=== PATIENT | female | born 1970 | race Caucasian/White ===

== ENCOUNTER 2019-08-13 11:45 | Outpatient (CLI) | payer MEDICAID ==
[2019-08-13 12:26] LABS: BASOPHILS % (AUTO) 0.3 %; EOSINOPHILS # (AUTO) 0.1 10^3/uL (0.0-0.7); EOSINOPHILS % (AUTO) 1.7 %; HGB - HEMOGLOBIN 14.7 g/dL (12.0-16.0); LYMPHOCYTES # (AUTO) 2.8 10^3/uL (1.5-3.5); LYMPHOCYTES % (AUTO) 37.5 %; MEAN CORPUSCULAR HEMOGLOBIN 26.9 pg (27.0-31.0); MEAN CORPUSCULAR VOLUME 81.5 fL (81.0-99.0); MEAN PLATELET VOLUME 9.3 fL (7.9-10.8); MONOCYTES # (AUTO) 0.6 10^3/uL (0.0-1.0); MONOCYTES % (AUTO) 7.9 %; NEUTROPHILS # (AUTO) 3.9 10^3/uL (1.5-6.6); NEUTROPHILS % (AUTO) 52.1 %; PLT - PLATELET COUNT 399 10^3/uL (130-450); RED BLOOD COUNT 5.47 10^6/uL (4.20-5.40); RED CELL DISTRIBUTION WIDTH 12.5 % (12.0-15.0); WHITE BLOOD COUNT 7.6 x10^3/uL (4.8-10.8)
[2019-08-13 12:37] LABS: MICROALBUM/CREATININE RATIO,UR 16.7 ug/mg (<30.0); MICROALBUMIN,URINE 5.6 mg/dL (0-300.0)
[2019-08-13 12:43] LABS: HB2 TOTAL 16.3 g/dL; HEMOGLOBIN A1C 0.76 g/dL; HEMOGLOBIN A1C % 6.4 % (4.6-6.2)
[2019-08-13 12:44] LABS: ALBUMIN 4.5 g/dL (3.2-5.5); ALBUMIN/GLOBULIN RATIO 1.5 (1.0-2.2); ALKALINE PHOSPHATASE 91 IU/L (42-121); ALT ALANINE AMINOTRANSFERASE 91 IU/L (10-60); AST ASPARTATE AMINOTRANSFERASE 39 IU/L (10-42); BILIRUBIN,TOTAL 0.9 mg/dL (0.2-1.0); BUN - BLOOD UREA NITROGEN 15 mg/dL (6-20); CALCIUM 9.4 mg/dL (8.5-10.3); CARBON DIOXIDE - CO2 25 mmol/L (21-32); CHLORIDE 102 mmol/L (101-111); CHOLESTEROL 223 mg/dL; CREATININE 1.1 mg/dL (0.4-1.0); GFR - MDRD 52 (>89); GLUCOSE 123 mg/dL (70-100); HDL CHOLESTEROL 45 mg/dL; LDL CHOLESTEROL,CALCULATED 126 mg/dL; LDL/HDL RATIO 2.8 (<4.4); SODIUM 138 mmol/L (135-145); TOTAL PROTEIN 7.6 g/dL (6.7-8.2); VLDL CHOLESTEROL 52 mg/dL
== END 2019-08-13 11:46 | disposition home or self-care (01) ==
LOC: LAB 11:45
DX: R79.89 Other specified abnormal findings of blood chemistry (principal); E11.9 Type 2 diabetes mellitus without complications; R74.8 Abnormal levels of other serum enzymes; E78.5 Hyperlipidemia, unspecified; E53.9 Vitamin B deficiency, unspecified; Z79.899 Other long term (current) drug therapy; E03.9 Hypothyroidism, unspecified
CPT/HCPCS: 36415; 80053; 80061; 82043; 82570; 82607; 83036; 83721; 85025

== ENCOUNTER 2020-02-12 09:57 | Emergency (ER) | payer MEDICAID ==
--- NOTE | 2020-02-12 10:23 | ED Physician Documentation ---
PD HPI Fall - Stated complaint Stated Complaint: R SIDED PX - Chief complaint Chief Complaint: Resp - History obtained from History obtained from: Patient - History of Present Illness Mechanism of injury: Slipped (She was stepping down onto a upright small log coming out of a chicken coop and the log tipped and she fell sideways against the edge of the wooden opening. She struck the right posterior lateral ribs and chest and has pain localized area with breathing and movement. She denies hitting her head. She denies any abdominal pain. She does not have any lower extremity weakness or numbness.) Fall distance: Standing position Where injury occurred: Home Timing - onset: How many hours ago (2), Today Injury(ies) location: Chest. No: Head, Neck, Abdomen Associated symptoms: Dyspnea. No: LOC, AMS, Weakness, Paresthesias, Nausea / vomiting Worsens with: Movement, Palpation, Other (breathing deeply) Contributing factors: No: Anticoagulated Similar symptoms before: Has not had sx before Review of Systems Constitutional: denies: Fever Nose: denies: Rhinorrhea / runny nose, Congestion Throat: denies: Sore throat Cardiac: reports: Chest pain / pressure (just since the fall). denies: Palpitations, Pedal edema, Calf pain Respiratory: denies: Cough GI: denies: Abdominal Pain, Nausea, Vomiting Musculoskeletal: denies: Extremity pain Neurologic: denies: Focal weakness, Numbness, Altered mental status, Headache, Head injury PD PAST MEDICAL HISTORY - Past Medical History Past Medical History: Yes Cardiovascular: Hypertension, High cholesterol Respiratory: COPD (mild - inhalers just PRN) Endocrine/Autoimmune: Type 2 diabetes, HyPOthyroidism Other Past Medical History: Hx. Breast ca. - Past Surgical History Past Surgical History: Yes /[employer]: Oophrectomy, Mastectomy - Present Medications Home Medications: Ambulatory Orders Medication Instructions Recorded Confirmed Atorvastatin [Lipitor] 10 mg ORAL DAILY 02/12/20 02/12/20 Citalopram [CeleXA] mg PO ONCE 02/12/20 Fexofenadine/Pseudoephedrine 1 each PO 02/12/20 02/12/20 [Krista-D 12 Hour Tablet] Levothyroxine [Synthroid] 125 mcg PO QDAC 02/12/20 02/12/20 Lisinopril [Zestril] 20 mg PO 02/12/20 Naproxen 500 mg PO BID #20 tablet 02/12/20 Tizanidine HCl 4 mg PO TID PRN #25 capsule 02/12/20 buPROPion [Wellbutrin Sr] mg PO BID 02/12/20 metFORMIN [Glucophage] 1,000 mg PO BIDWM 02/12/20 02/12/20 - Allergies Allergies/Adverse Reactions: Allergies Allergy/AdvReac Type Severity Reaction Status Date / Time No Known Drug Allergies Allergy Verified 02/12/20 10:09 - Social History Does the pt smoke?: Yes Smoking Status: Current every day smoker Does the pt drink ETOH?: No - Immunizations Immunizations are current?: No PD ED PE NORMAL - Vitals Vital signs reviewed: Yes - General General: Alert and oriented X 3, Well developed/nourished - HEENT HEENT: Atraumatic, Pharynx benign - Neck Neck: Supple, no meningeal sign, No bony TTP, No adenopathy - Cardiac Cardiac: RRR, No murmur - Respiratory Respiratory: Clear bilaterally, Other (Tenderness in the right posterior lateral and mid scapular line around ribs 9 or 10. There is no abdominal tenderness. There is no spinal tenderness per se in the thoracic nor lumbar area. No crepitance is felt. Lung sounds are symmetric.) - Abdomen Abdomen: Soft, Non tender, Non distended - Back Back: No spinal TTP (but is tender right midscapular to posterior axillary area lower ribs 9-10 area) - Derm Derm: Normal color, Warm and dry - Extremities Extremities: No tenderness to palpate, Normal ROM s pain - Neuro Neuro: Alert and oriented X 3, No motor deficit, No sensory deficit, Normal speech Results - Vitals Vitals: Vital Signs - 24 hr 02/12/20 02/12/20 02/12/20 10:05 12:05 13:01 Temperature 36.3 C L Heart Rate 84 80 59 L Respiratory 18 16 16 Rate Blood Pressure 146/96 H 150/78 H 149/68 H O2 Saturation 99 99 96 Oxygen O2 Source Room air - Rads (name of study) chest CT Radiology: Prelim report reviewed (no fractures nor acute findings), See rad report PD MEDICAL DECISION MAKING - ED course Complexity details: reviewed results, considered differential, d/w patient Departure - Departure Disposition: 01 Home, Self Care Clinical Impression: Accidental fall Qualifiers: Encounter type: initial encounter Qualified Code(s): W19.XXXA - Unspecified fall, initial encounter Chest wall contusion Qualifiers: Encounter type: initial encounter Laterality: right Qualified Code(s): S20.211A - Contusion of right front wall of thorax, initial encounter Condition: Stable Record reviewed to determine appropriate education?: Yes Instructions: ED Contusion Chest Wall Follow-Up: Marian William MD [Primary Care Provider] - Prescriptions: Naproxen 500 mg PO BID #20 tablet Tizanidine HCl 4 mg PO TID PRN #25 capsule PRN Reason: Spasms Comments: Heat and gentle stretching for her spasms. Use anti-inflammatory of naproxen twice daily for the next 7 to 10 days. To that add Tylenol 650 mg every 4-6 hours for pain as well. For the muscle spasms, he can also use tizanidine muscle relaxant 3-4 times a day. No fractures or lung injury or organ injury are seen on your CT scan. I presume the bruising of the chest wall and muscles will decrease over several days and resolved within a week. Recheck if not improving in that timeframe. Discharge Date/Time: 02/12/20 13:04
[2020-02-12] MEDS ORDERED: KETOROLAC 60 MG/2 ML VIAL IM STA (10:39)
--- NOTE | 2020-02-12 12:39 | CT Report ---
Reason: fell against object; pain rt low posterolat ribs Procedure Date: 02/12/2020 Accession Number: [id number] / [id number] Procedure: CT - CHEST WO CPT Code: Final Report FULL RESULT: EXAM: CT CHEST EXAM DATE: 02/12/2020 11:56 AM. CLINICAL HISTORY: Fell against object; pain right low posterolateral ribs. COMPARISONS: THORAX 1 CHEST ROUTINE 05/18/2010 7:54 AM. TECHNIQUE: Routine helical CT imaging was performed through the chest. IV contrast: None. Reconstructions: Coronal and sagittal. In accordance with CT protocol optimization, one or more of the following dose reduction techniques were utilized for this exam: automated exposure control, adjustment of mA and/or KV based on patient size, or use of iterative reconstructive technique. FINDINGS: Lungs/Pleura: No nodules, bronchial thickening, consolidation, or edema. Pulmonary vasculature is normal. No pericardial or pleural effusion. No pneumothorax. Mediastinum: Normal. No adenopathy or masses. The heart and great vessels are normal. Bones: Unremarkable. Visualized Abdomen: Cholelithiasis. Liver, kidneys, pancreas and spleen appear unremarkable. Other: No visible fracture. IMPRESSION: No acute pathology. RADIA
[2020-02-12 13:04] VITALS: BP 149/68
== END 2020-02-12 13:04 | disposition home or self-care (01) ==
LOC: ED 09:57
DX: S20.211A Contusion of right front wall of thorax, initial encounter (principal); W17.89XA Other fall from one level to another, initial encounter; Y93.K9 Activity, other involving animal care; Y92.008 Other place in unspecified non-institutional (private) residence as the place of occurrence of the external cause; I10 Essential (primary) hypertension; F17.200 Nicotine dependence, unspecified, uncomplicated; E11.9 Type 2 diabetes mellitus without complications; Z79.84 Long term (current) use of oral hypoglycemic drugs
CPT/HCPCS: 71250; 96372; 99284

== ENCOUNTER 2020-05-10 14:01 | Outpatient (CLI) | payer MEDICAID ==
--- NOTE | 2020-05-15 13:25 | Mammography Report ---
UNILATERAL RIGHT DIGITAL SCREENING MAMMOGRAM 3D/2D: 05/10/2020 CLINICAL: Routine screening. Personal history of left breast cancer. Comparison is made to exams dated: 01/19/2019 mammogram - [facility], 01/03/2016 mammogram, 11/18/2012 mammogram, and 09/09/2011 mammogram - [facility]. There are scattered fibrogland ular elements in right breast. No significant masses, calcifications, or other findings are seen in the breast. There has been no significant interval change. IMPRESSION: NEGATIVE There is no mammographic evidence of malignancy. A 1 year screening mammogram is recommended. This exam was interpreted at Station ID: [id number]. NOTE: For mammograms, a report in lay terms will be sent to the patient. Approximately 15% of breast malignancies will not be visualized mammographically. In the management of a palpable breast mass, a negative mammogram must not discourage biopsy of a clinically suspicious lesion. Electronically Signed By: Elie Tom M.D. [facility] [place]:05/12/2020 16:41:54 ACR BI-RADS Category 1: Negative 3341F PARENCHYMAL PATTERN: (A) - The breast(s) demonstrate(s) scattered fibroglandular densities. BI-RADS CATEGORY: (1) - 1 RECOMMENDATION: (ANNUAL) - Recommend routine annual screening mammography. [id number] 1 year screening LATERALITY: (B)
== END 2020-05-10 14:02 | disposition home or self-care (01) ==
LOC: DI 14:01
DX: Z12.31 Encounter for screening mammogram for malignant neoplasm of breast (principal); Z08 Encounter for follow-up examination after completed treatment for malignant neoplasm; Z85.3 Personal history of malignant neoplasm of breast

== ENCOUNTER 2020-09-22 16:38 | Outpatient (CLI) | payer MEDICAID | END 2020-09-22 16:39 | disposition home or self-care (01) | LOC: COV 16:38 | PROVIDERS: ATTEND Family Medicine | DX: R05 Cough (principal); R06.02 Shortness of breath; Z20.828 Contact with and (suspected) exposure to other viral communicable diseases ==

== ENCOUNTER 2021-03-21 09:28 | Outpatient (CLI) | payer MEDICAID ==
[2021-03-21 09:46] LABS: BASOPHILS # (AUTO) 0.1 10^3/uL (0.0-0.1); BASOPHILS % (AUTO) 0.6 %; EOSINOPHILS # (AUTO) 0.2 10^3/uL (0.0-0.7); EOSINOPHILS % (AUTO) 2.6 %; HCT - HEMATOCRIT 43.6 % (37.0-47.0); HGB - HEMOGLOBIN 14.6 g/dL (12.0-16.0); LYMPHOCYTES # (AUTO) 2.9 10^3/uL (1.5-3.5); LYMPHOCYTES % (AUTO) 36.1 %; MEAN CORPUSCULAR HEMOGLOBIN 27.7 pg (27.0-31.0); MEAN CORPUSCULAR HGB CONC 33.5 g/dL (32.0-36.0); MEAN CORPUSCULAR VOLUME 82.6 fL (81.0-99.0); MEAN PLATELET VOLUME 8.8 fL (7.9-10.8); MONOCYTES # (AUTO) 0.7 10^3/uL (0.0-1.0); MONOCYTES % (AUTO) 8.4 %; NEUTROPHILS # (AUTO) 4.2 10^3/uL (1.5-6.6); NEUTROPHILS % (AUTO) 51.8 %; PLT - PLATELET COUNT 412 10^3/uL (130-450); RED BLOOD COUNT 5.28 10^6/uL (4.20-5.40); RED CELL DISTRIBUTION WIDTH 12.9 % (12.0-15.0); WHITE BLOOD COUNT 8.1 x10^3/uL (4.8-10.8)
[2021-03-21 10:07] LABS: ALBUMIN 4.2 g/dL (3.2-5.5); ALBUMIN/GLOBULIN RATIO 1.4 (1.0-2.2); ALKALINE PHOSPHATASE 82 IU/L (42-121); ALT ALANINE AMINOTRANSFERASE 42 IU/L (10-60); AST ASPARTATE AMINOTRANSFERASE 27 IU/L (10-42); BILIRUBIN,TOTAL 0.5 mg/dL (0.2-1.0); BUN - BLOOD UREA NITROGEN 16 mg/dL (6-20); CALCIUM 9.1 mg/dL (8.5-10.3); CARBON DIOXIDE - CO2 25 mmol/L (21-32); CHLORIDE 102 mmol/L (101-111); CHOL/HDL RATIO 4.7 (<4.4); CHOLESTEROL 197 mg/dL; GFR - MDRD 58 (>89); GLUCOSE 155 mg/dL (70-100); HDL CHOLESTEROL 42 mg/dL; LDL CHOLESTEROL,CALCULATED 109 mg/dL; LDL/HDL RATIO 2.6 (<4.4); POTASSIUM 4.3 mmol/L (3.5-5.0); SODIUM 137 mmol/L (135-145); TOTAL PROTEIN 7.2 g/dL (6.7-8.2); TRIGLYCERIDES 231 mg/dL; VLDL CHOLESTEROL 46 mg/dL
[2021-03-21 10:19] LABS: THYROID STIMULATING HORMONE 2.39 uIU/mL (0.34-5.60)
[2021-03-21 10:20] LABS: CREATININE,URINE 234.7 mg/dL; MICROALBUM/CREATININE RATIO,UR 10.7 ug/mg (<30.0); MICROALBUMIN,URINE 2.5 mg/dL (0-300.0)
[2021-03-21 12:48] LABS: ESTIMATED AVERAGE GLUCOSE 146 mg/dL (70-100); HEMOGLOBIN A1c% 6.7 % (4.27-6.07)
== END 2021-03-21 09:29 | disposition home or self-care (01) ==
LOC: LAB 09:28
DX: Z00.00 Encounter for general adult medical examination without abnormal findings (principal); E11.9 Type 2 diabetes mellitus without complications; R74.8 Abnormal levels of other serum enzymes; E78.5 Hyperlipidemia, unspecified; E03.9 Hypothyroidism, unspecified; E53.9 Vitamin B deficiency, unspecified; K21.9 Gastro-esophageal reflux disease without esophagitis
CPT/HCPCS: 36415; 80050; 80061; 82043; 82570; 83036; 83721

== ENCOUNTER 2021-11-12 09:29 | Outpatient (CLI) | payer MEDICAID ==
[2021-11-12 10:01] LABS: BASOPHILS # (AUTO) 0.1 10^3/uL (0.0-0.1); BASOPHILS % (AUTO) 0.7 %; EOSINOPHILS # (AUTO) 0.2 10^3/uL (0.0-0.7); EOSINOPHILS % (AUTO) 2.7 %; HCT - HEMATOCRIT 45.6 % (37.0-47.0); HGB - HEMOGLOBIN 15.2 g/dL (12.0-16.0); LYMPHOCYTES # (AUTO) 2.9 10^3/uL (1.5-3.5); LYMPHOCYTES % (AUTO) 41.8 %; MEAN CORPUSCULAR HEMOGLOBIN 27.2 pg (27.0-31.0); MEAN CORPUSCULAR HGB CONC 33.3 g/dL (32.0-36.0); MEAN CORPUSCULAR VOLUME 81.6 fL (81.0-99.0); MONOCYTES # (AUTO) 0.5 10^3/uL (0.0-1.0); MONOCYTES % (AUTO) 6.9 %; NEUTROPHILS # (AUTO) 3.3 10^3/uL (1.5-6.6); NEUTROPHILS % (AUTO) 47.6 %; PLT - PLATELET COUNT 381 10^3/uL (130-450); RED BLOOD COUNT 5.59 10^6/uL (4.20-5.40); RED CELL DISTRIBUTION WIDTH 12.8 % (12.0-15.0); WHITE BLOOD COUNT 6.9 x10^3/uL (4.8-10.8)
[2021-11-12 10:20] LABS: ALBUMIN 4.4 g/dL (3.2-5.5); ALBUMIN/GLOBULIN RATIO 1.6 (1.0-2.2); ALKALINE PHOSPHATASE 78 IU/L (42-121); ALT ALANINE AMINOTRANSFERASE 44 IU/L (10-60); AST ASPARTATE AMINOTRANSFERASE 26 IU/L (10-42); BILIRUBIN,TOTAL 0.9 mg/dL (0.2-1.0); BUN - BLOOD UREA NITROGEN 12 mg/dL (6-20); CALCIUM 9.4 mg/dL (8.5-10.3); CARBON DIOXIDE - CO2 26 mmol/L (21-32); CHLORIDE 102 mmol/L (101-111); CHOL/HDL RATIO 4.9 (<4.4); CHOLESTEROL 209 mg/dL; GFR - MDRD 58 (>89); GLUCOSE 151 mg/dL (70-100); HDL CHOLESTEROL 43 mg/dL; LDL CHOLESTEROL,CALCULATED 121 mg/dL; LDL/HDL RATIO 2.8 (<4.4); POTASSIUM 4.4 mmol/L (3.5-5.0); SODIUM 139 mmol/L (135-145); TOTAL PROTEIN 7.1 g/dL (6.7-8.2); TRIGLYCERIDES 226 mg/dL; VLDL CHOLESTEROL 45 mg/dL
[2021-11-12 10:33] LABS: THYROID STIMULATING HORMONE 2.86 uIU/mL (0.34-5.60)
[2021-11-12 20:59] LABS: ESTIMATED AVERAGE GLUCOSE 160 mg/dL (70-100); HEMOGLOBIN A1c% 7.2 % (4.27-6.07)
== END 2021-11-12 09:30 | disposition home or self-care (01) ==
LOC: LAB 09:29
DX: Z00.00 Encounter for general adult medical examination without abnormal findings (principal); D75.1 Secondary polycythemia; E11.9 Type 2 diabetes mellitus without complications; R74.8 Abnormal levels of other serum enzymes; E78.5 Hyperlipidemia, unspecified; E03.9 Hypothyroidism, unspecified; K21.9 Gastro-esophageal reflux disease without esophagitis; Z79.899 Other long term (current) drug therapy; E55.9 Vitamin D deficiency, unspecified; L65.9 Nonscarring hair loss, unspecified
CPT/HCPCS: 36415; 80050; 80061; 82043; 82306; 82607; 83036; 83721

== ENCOUNTER 2022-03-21 09:34 | Outpatient (CLI) | payer MEDICAID ==
[2022-03-21 10:07] LABS: ALBUMIN 4.3 g/dL (3.2-5.5); ALBUMIN/GLOBULIN RATIO 1.3 (1.0-2.2); ALKALINE PHOSPHATASE 84 IU/L (42-121); ALT ALANINE AMINOTRANSFERASE 39 IU/L (10-60); AST ASPARTATE AMINOTRANSFERASE 23 IU/L (10-42); BILIRUBIN,TOTAL 0.8 mg/dL (0.2-1.0); BUN - BLOOD UREA NITROGEN 16 mg/dL (6-20); CALCIUM 9.1 mg/dL (8.5-10.3); CARBON DIOXIDE - CO2 25 mmol/L (21-32); CHLORIDE 98 mmol/L (101-111); CHOL/HDL RATIO 4.9 (<4.4); CHOLESTEROL 191 mg/dL; GFR - MDRD 58 (>89); GLUCOSE 148 mg/dL (70-100); HDL CHOLESTEROL 39 mg/dL; LDL CHOLESTEROL,CALCULATED 112 mg/dL; LDL/HDL RATIO 2.9 (<4.4); POTASSIUM 4.2 mmol/L (3.5-5.0); SODIUM 133 mmol/L (135-145); TOTAL PROTEIN 7.6 g/dL (6.7-8.2); TRIGLYCERIDES 200 mg/dL; VLDL CHOLESTEROL 40 mg/dL
[2022-03-21 13:34] LABS: ESTIMATED AVERAGE GLUCOSE 157 mg/dL (70-100); HEMOGLOBIN A1c% 7.1 % (4.27-6.07)
== END 2022-03-21 09:35 | disposition home or self-care (01) ==
LOC: LAB 09:34
DX: E11.9 Type 2 diabetes mellitus without complications (principal)
CPT/HCPCS: 36415; 80053; 80061; 83036; 83721

== ENCOUNTER 2022-06-10 11:43 | Outpatient (CLI) | payer MEDICAID ==
--- NOTE | 2022-06-10 16:02 | CT Report ---
PROCEDURE: Low Dose Lung Cancer Screen INDICATIONS: CURRENT SMOKER TECHNIQUE: Noncontrast low-dose axial images were acquired from the pulmonary apices to the posterior costophren ic angles. Multiplanar MIP reformats were then reconstructed. For radiation dose reduction, the follo wing was used: automated exposure control, adjustment of mA and/or kV according to patient size. COMPARISON: Chest CT without contrast dated 02/12/2020 FINDINGS: Image quality: Excellent. Lungs and pleura: No pulmonary nodules. No acute airspace opacities. No pleural effusion or pneumoth orax. Mediastinum: Heart size is normal. No pericardial effusion. No mediastinal adenopathy by size crit eria. Thoracic aorta and central pulmonary arteries are normal in size. Esophagus is normal in robbie afua. No hiatal hernia. Bones and chest wall: No suspicious bony lesions. No vertebral body compression fractures. No axil nany or supraclavicular adenopathy by size criteria. The thyroid is normal in size and there are no incidental findings. Abdomen: Visualized upper abdomen solid organs and bowel loops appear normal in the absence of contr ast. IMPRESSION: No suspicious pulmonary nodules or pulmonary mass lesions. Negative CT of the chest. Lung RADS 1. Annual CT follow-up recommended. CLINICAL RECOMMENDATION STATEMENTS: In patients <35 years with an ITN detected on CT, MRI, or extrathyroidal ultrasound, the Committee re commends further evaluation with dedicated thyroid ultrasound if the nodule is "e1 cm and has no susp icious imaging features, and if the patient has normal life expectancy. In patients "e35 years with an ITN detected on CT, MRI, or extrathyroidal ultrasound, the Committee r ecommends further evaluation with dedicated thyroid ultrasound if the nodule is "e1.5 cm and has no s uspicious imaging features, and if the patient has normal life expectancy. (ACR, 2014) Reviewed by: Holley Feliz MD on 06/10/2022 4:01 PM PDT Approved by: Holley Feliz MD on 06/10/2022 4:01 PM PDT Station ID: [id number]
== END 2022-06-10 11:44 | disposition home or self-care (01) ==
LOC: DI 11:43
PROVIDERS: ATTEND Family Medicine
DX: Z12.2 Encounter for screening for malignant neoplasm of respiratory organs (principal); F17.210 Nicotine dependence, cigarettes, uncomplicated

== ENCOUNTER 2022-11-14 11:23 | Outpatient (CLI) | payer MEDICAID, BC ==
[2022-11-14 11:40] LABS: BASOPHILS # (AUTO) 0.1 10^3/uL (0.0-0.1); BASOPHILS % (AUTO) 0.5 %; EOSINOPHILS # (AUTO) 0.3 10^3/uL (0.0-0.7); EOSINOPHILS % (AUTO) 2.9 %; HCT - HEMATOCRIT 44.9 % (37.0-47.0); HGB - HEMOGLOBIN 14.6 g/dL (12.0-16.0); LYMPHOCYTES # (AUTO) 4.2 10^3/uL (1.5-3.5); LYMPHOCYTES % (AUTO) 44.4 %; MEAN CORPUSCULAR HEMOGLOBIN 26.9 pg (27.0-31.0); MEAN CORPUSCULAR HGB CONC 32.5 g/dL (32.0-36.0); MEAN CORPUSCULAR VOLUME 82.8 fL (81.0-99.0); MEAN PLATELET VOLUME 8.9 fL (7.9-10.8); MONOCYTES # (AUTO) 0.6 10^3/uL (0.0-1.0); MONOCYTES % (AUTO) 6.8 %; NEUTROPHILS # (AUTO) 4.2 10^3/uL (1.5-6.6); NEUTROPHILS % (AUTO) 44.9 %; PLT - PLATELET COUNT 462 10^3/uL (130-450); RED BLOOD COUNT 5.42 10^6/uL (4.20-5.40); RED CELL DISTRIBUTION WIDTH 12.9 % (12.0-15.0); WHITE BLOOD COUNT 9.4 x10^3/uL (4.8-10.8)
[2022-11-14 12:00] LABS: ALBUMIN 4.3 g/dL (3.2-5.5); ALBUMIN/GLOBULIN RATIO 1.4 (1.0-2.2); ALKALINE PHOSPHATASE 79 IU/L (42-121); ALT ALANINE AMINOTRANSFERASE 59 IU/L (10-60); AST ASPARTATE AMINOTRANSFERASE 37 IU/L (10-42); BILIRUBIN,TOTAL 0.7 mg/dL (0.2-1.0); BUN - BLOOD UREA NITROGEN 16 mg/dL (6-20); CALCIUM 8.9 mg/dL (8.5-10.3); CARBON DIOXIDE - CO2 24 mmol/L (21-32); CHLORIDE 103 mmol/L (101-111); CHOL/HDL RATIO 4.5 (<4.4); CHOLESTEROL 168 mg/dL; CREATININE 1.1 mg/dL (0.4-1.0); GFR - MDRD 52 (>89); GLUCOSE 153 mg/dL (70-100); HDL CHOLESTEROL 37 mg/dL; LDL CHOLESTEROL,CALCULATED 72 mg/dL; LDL/HDL RATIO 1.9 (<4.4); POTASSIUM 4.6 mmol/L (3.5-5.0); SODIUM 136 mmol/L (135-145); TOTAL PROTEIN 7.4 g/dL (6.7-8.2); TRIGLYCERIDES 294 mg/dL; VLDL CHOLESTEROL 59 mg/dL
[2022-11-14 12:08] LABS: ESTIMATED AVERAGE GLUCOSE 166 mg/dL (70-100); HEMOGLOBIN A1c% 7.4 % (4.27-6.07)
[2022-11-14 12:11] LABS: THYROID STIMULATING HORMONE 3.4 uIU/mL (0.34-5.60)
[2022-11-14 15:35] LABS: CREATININE,URINE 128.3 mg/dL; MICROALBUM/CREATININE RATIO,UR 32.7 ug/mg (<30.0); MICROALBUMIN,URINE 4.2 mg/dL (0-300.0)
== END 2022-11-14 11:24 | disposition home or self-care (01) ==
LOC: LAB 11:23
PROVIDERS: ATTEND Family Medicine
DX: Z00.00 Encounter for general adult medical examination without abnormal findings (principal); E11.9 Type 2 diabetes mellitus without complications; E78.00 Pure hypercholesterolemia, unspecified; E03.9 Hypothyroidism, unspecified; E53.9 Vitamin B deficiency, unspecified
CPT/HCPCS: 36415; 80050; 80061; 82043; 82570; 82607; 83036; 83721

== ENCOUNTER 2024-03-03 10:54 | Outpatient (CLI) | payer OTHER ==
[2024-03-03 11:30] LABS: BASOPHILS # (AUTO) 0.1 10^3/uL (0.0-0.1); BASOPHILS % (AUTO) 0.6 %; EOSINOPHILS # (AUTO) 0.2 10^3/uL (0.0-0.7); HCT - HEMATOCRIT 48.7 % (37.0-47.0); HGB - HEMOGLOBIN 15.2 g/dL (12.0-16.0); LYMPHOCYTES % (AUTO) 33.3 %; MEAN CORPUSCULAR HEMOGLOBIN 26.1 pg (27.0-31.0); MEAN CORPUSCULAR HGB CONC 31.2 g/dL (32.0-36.0); MEAN CORPUSCULAR VOLUME 83.5 fL (81.0-99.0); MEAN PLATELET VOLUME 9.6 fL (7.9-10.8); MONOCYTES # (AUTO) 0.7 10^3/uL (0.0-1.0); MONOCYTES % (AUTO) 7.2 %; NEUTROPHILS # (AUTO) 5.1 10^3/uL (1.5-6.6); NEUTROPHILS % (AUTO) 56.3 %; PLT - PLATELET COUNT 380 10^3/uL (130-450); RED BLOOD COUNT 5.83 10^6/uL (4.20-5.40); RED CELL DISTRIBUTION WIDTH 12.9 % (12.0-15.0); WHITE BLOOD COUNT 9.1 x10^3/uL (4.8-10.8)
[2024-03-03 11:43] LABS: ALBUMIN 4.3 g/dL (3.2-5.5); ALBUMIN/GLOBULIN RATIO 1.6 (1.0-2.2); ALKALINE PHOSPHATASE 103 IU/L (42-121); ALT ALANINE AMINOTRANSFERASE 35 IU/L (10-60); AST ASPARTATE AMINOTRANSFERASE 19 IU/L (10-42); BILIRUBIN,TOTAL 0.6 mg/dL (0.2-1.0); BUN - BLOOD UREA NITROGEN 14 mg/dL (6-20); CALCIUM 9.8 mg/dL (8.5-10.3); CARBON DIOXIDE - CO2 26 mmol/L (21-32); CHLORIDE 102 mmol/L (101-111); CHOL/HDL RATIO 5.3 (<4.4); CHOLESTEROL 212 mg/dL; CREATININE 0.9 mg/dL (0.6-1.3); GFR - MDRD 65 (>89); GLUCOSE 250 mg/dL (74-104); HDL CHOLESTEROL 40 mg/dL; LDL CHOLESTEROL,CALCULATED 125 mg/dL; LDL/HDL RATIO 3.1 (<4.4); POTASSIUM 4.4 mmol/L (3.5-4.5); SODIUM 135 mmol/L (135-145); TRIGLYCERIDES 233 mg/dL (48-352); VLDL CHOLESTEROL 47 mg/dL
[2024-03-03 11:52] LABS: ESTIMATED AVERAGE GLUCOSE 246 mg/dL (70-100); HEMOGLOBIN A1c% 10.2 % (4.27-6.07)
[2024-03-03 11:58] LABS: THYROID STIMULATING HORMONE 3.46 uIU/mL (0.34-5.60)
[2024-03-03 12:03] LABS: CREATININE,URINE 451.8 mg/dL; MICROALBUMIN,URINE 85.4 mg/dL
[2024-03-04 03:41] LABS: HIV SCREEN 4TH GENERATION Non Reactive (Non Reactive)
[2024-03-05 00:08] LABS: HCV AB Non Reactive (Non Reactive)
== END 2024-03-03 10:55 | disposition home or self-care (01) ==
LOC: LAB 10:54
PROVIDERS: ATTEND Family Medicine
DX: Z00.00 Encounter for general adult medical examination without abnormal findings (principal); Z11.4 Encounter for screening for human immunodeficiency virus [HIV]; L65.9 Nonscarring hair loss, unspecified; E03.8 Other specified hypothyroidism; E78.2 Mixed hyperlipidemia; E11.9 Type 2 diabetes mellitus without complications; R74.01 Elevation of levels of liver transaminase levels; Z11.59 Encounter for screening for other viral diseases; E53.9 Vitamin B deficiency, unspecified
CPT/HCPCS: 36415; 80053; 80061; 82043; 82570; 82607; 83036; 83721; 84443; 85025; 86803; 87389

== ENCOUNTER 2024-04-15 14:14 | Outpatient (CLI) | payer OTHER ==
[2024-04-15 20:01] LABS: ESTIMATED AVERAGE GLUCOSE 217 mg/dL (70-100); HEMOGLOBIN A1c% 9.2 % (4.27-6.07)
== END 2024-04-15 14:15 | disposition home or self-care (01) ==
LOC: LAB.N 14:14
PROVIDERS: ATTEND Family Medicine
DX: E11.22 Type 2 diabetes mellitus with diabetic chronic kidney disease (principal); N18.2 Chronic kidney disease, stage 2 (mild)
CPT/HCPCS: 36415; 83036

== ENCOUNTER 2024-05-19 12:26 | Outpatient (CLI) | payer OTHER ==
[2024-05-19 22:53] LABS: ESTIMATED AVERAGE GLUCOSE 186 mg/dL (70-100); HEMOGLOBIN A1c% 8.1 % (4.27-6.07)
== END 2024-05-19 12:27 | disposition home or self-care (01) ==
LOC: LAB.N 12:26
PROVIDERS: ATTEND Family Medicine
DX: E11.22 Type 2 diabetes mellitus with diabetic chronic kidney disease (principal); N18.2 Chronic kidney disease, stage 2 (mild)
CPT/HCPCS: 36415; 83036